=== PATIENT | female | born 1985 | race Caucasian/White ===

== ENCOUNTER 2022-05-31 15:46 | Emergency (ER) | payer OTHER, SELFPAY ==
--- NOTE | ~2022-05-31 | XR_ITS ---
XR knee LT min 4V DATE: 05/31/2022 16:29 INDICATION: Lateral left knee pain. [place] a pop in the knee jumping on a trampoline. TECHNIQUE: AP, bilateral oblique and crosstable lateral views COMPARISON: None FINDINGS: No fracture or dislocation or joint effusion. Joint spaces are preserved. No periosteal italo ction or bone destruction. No radiopaque intra-articular loose body or chondrocalcinosis. IMPRESSION: Negative Reviewed, dictated and finalized at location A. [employer] OPERATOR IMPRESSION: Negative
[2022-05-31 15:50] VITALS: BP 145/92; PULSE 84; RESP 14; TEMP 37.3; O2SAT 100
--- NOTE | 2022-05-31 17:42 | ED.LOWEXIN ---
HPI - Extremity Injury (Lower) General Chief Complaint: Extremity Injury, Lower Stated Complaint: knee injury Time Seen by Provider: 05/31/22 16:34 History of Present Illness HPI Narrative: Female presents emergency room for evaluation of left knee pain. Patient states that she was at [place] trampoline park, when she landed twisting her knee. Patient states that she was unable to ambulate following the injury. Reports hearing a pop noise at the time of the injury. Has not taken any medications to alleviate her symptoms. States the pain radiates into the posterior aspect of her knee. Pain is worse when attempting to ambulate. Related Data Allergies Allergy/AdvReac Type Severity Reaction Status Date / Time No Known Allergies Allergy Verified 05/31/22 15:47 Review of Systems Review of Systems: CONSTITUTIONAL: Denies fever, chills, or sweats. EYES: Denies visual changes, redness, or discharge. ENT: Denies rhinorrhea, congestion, sore throat, or otalgia. CARDIOVASCULAR: Denies chest pain, palpitations, or edema. RESPIRATORY: Denies cough or dyspnea. GASTROINTESTINAL: Denies abdominal pain, nausea, vomiting, or diarrhea. GENITOURINARY: Denies dysuria or hematuria. SKIN: Denies rash or itching. MUSCULOSKELETAL: Reports left knee pain NEUROLOGIC: Denies headache, numbness, dizziness, or weakness. PSYCHIATRIC: Denies anxiety or depression. Exam Narrative: GENERAL: Well-appearing, well-nourished, no physical limitations, and in no acute distress. HEAD: Normocephalic, atraumatic. EYES: Conjunctivae normal, PERRLA and EOMI. CHEST: Clear to auscultation. No respiratory distress. No wheezes rales or rhonchi. HEART: Regular rate and rhythm. No murmur heard. Normal peripheral pulses. EXTREMITIES: Left knee: No bony tenderness. No soft tissue swelling noted no ecchymosis noted. No patellar tracking. No pain with extension or flexion. No joint laxity. Negative anterior drawer test. Negative Jas's test. Neurovascular is intact distally. Strong distal pulses. SKIN: Warm, dry, no rash. No noted wounds NEURO: No focal deficits. Alert and oriented x3. MAEW. CN's II-XI intact bilaterally, normal gait PSYCH: Cooperative. Normal mood and affect. Course Vital Signs Vital signs: Vital Signs Temperature 37.3 C 05/31/22 15:50 Pulse Rate 84 05/31/22 15:50 Respiratory Rate 14 05/31/22 15:50 Blood Pressure 145/92 H 05/31/22 15:50 Pulse Oximetry 100 05/31/22 15:50 Oxygen Delivery Room Air 05/31/22 15:50 Temperature 37.3 C 05/31/22 15:50 Pulse Rate 84 05/31/22 15:50 Respiratory Rate 14 05/31/22 15:50 Blood Pressure 145/92 H 05/31/22 15:50 Pulse Oximetry 100 05/31/22 15:50 Oxygen Delivery Room Air 05/31/22 15:50 Discharge Plan Discharge Clinical Impression: Acute internal derangement of knee Patient Disposition: Home, Self-Care Condition: Stable Instructions: Antibiotic Form, Knee Pain (ED) Prescriptions: New naproxen 500 mg tablet,delayed release (DR/EC) 500 mg PO BID Qty: 20 0RF Follow-up/Referrals: PHYSICIAN NOT ON STAFF,NONSTAFF [Primary Care Provider] - Napoleon Adames MD [Physician] - Stand Alone Forms: Work/School Release IP Time of Disposition: 17:45
[2022-05-31 18:11] VITALS: PULSE 67; RESP 16; O2SAT 99
== END 2022-05-31 18:12 | disposition home or self-care (01) ==
PROVIDERS: Emergency Provider Nurse Practitioner Family
DX: M23.92 Unspecified internal derangement of left knee (principal); S89.92XA Unspecified injury of left lower leg, initial encounter; X50.9XXA Other and unspecified overexertion or strenuous movements or postures, initial encounter; Y93.44 Activity, trampolining
CPT/HCPCS: 73564; 99283

== ENCOUNTER 2022-10-29 17:38 | Emergency (ER) | payer OTHER, SELFPAY ==
--- NOTE | 2022-10-29 17:42 | ED.URI ---
HPI - URI/Sore Throat General Chief Complaint: Upper Respiratory Infection Stated Complaint: poss strep Time Seen by Provider: 10/29/22 17:42 Source: patient and RN notes reviewed History of Present Illness HPI Narrative: Patient is a 37-year-old female who presents to urgent care with complaints of a sore throat that started yesterday. Patient has been taking ibuprofen as needed. Denies any fever, nausea or vomiting. States her daughter was diagnosed with strep 3 days ago however she has only been around her once. No other acute complaints. No acute distress noted. Patient aware of the plan of care. Some parts of this dictation were generated by voice recognition software and may contain typographical and/or grammatical inaccuracies. Related Data Allergies Allergy/AdvReac Type Severity Reaction Status Date / Time No Known Allergies Allergy Verified 07/15/22 12:53 Review of Systems Review of Systems: CONSTITUTIONAL: Denies fever, chills, or sweats. EYES: Denies visual changes, redness, or discharge. ENT: Denies rhinorrhea, congestion, otalgia. Reports of sore throat CARDIOVASCULAR: Denies chest pain, palpitations, or edema. RESPIRATORY: Denies cough or dyspnea. GASTROINTESTINAL: Denies abdominal pain, nausea, vomiting, or diarrhea. GENITOURINARY: Denies dysuria or hematuria. SKIN: Denies rash or itching. MUSCULOSKELETAL: Denies back pain, joint pain, or myalgia. NEUROLOGIC: Denies headache, numbness, or weakness. All other systems reviewed are negative, except as documented in HPI. [facility] Surgical History Surgical History History of hemangioma excision History of umbilical hernia repair Family History Family History Mother Depression Grandparent Heart disease Social History Social History Smoking status: Current every day smoker Tobacco type: cigarettes Alcohol intake: current Substance use type: does not use Living arrangements: alone Comments At the time of my signature, I reviewed and agree with the nursing past medical, surgical, social, and family history. There is no relevant family history pertinent to the patient complaint. Exam Narrative: GENERAL: This is a well-nourished, well-developed patient, in no apparent distress. HEAD: normocephalic, atraumatic. EYES: PERRL. Sclera clear/white. Vision is grossly intact. EARS: External ears normal, auditory canals clear and without drainage, TMs normal without perforation. Hearing grossly intact. NOSE: External nose normal with no obvious nasal discharge, nares without redness, no rhinorrhea. THROAT: Mucous membranes moist, posterior pharynx clear. Mild postnasal drainage NECK: Neck supple CARDIOVASCULAR: Regular rate and rhythm without murmurs, gallops, or rubs. RESPIRATORY: Clear to auscultation. Breath sounds equal bilaterally. No wheezes, rales, or rhonchi. SKIN: warm, intact with no suspicious lesions or rash, good texture and turgor. NEURO: awake, alert, and oriented to person, place and time. There were no obvious focal neurologic abnormalities. EXTREMITIES: No clubbing, cyanosis, or edema. Course Course Level of Care: Express Care Visit Vital Signs Vital signs: Vital Signs Temperature 98.5 F 10/29/22 17:44 Pulse Rate 62 10/29/22 17:44 Respiratory Rate 20 10/29/22 17:44 Blood Pressure 136/88 10/29/22 17:44 Pulse Oximetry 100 10/29/22 17:44 Oxygen Delivery Room Air 10/29/22 17:44 Temperature 98.5 F 10/29/22 17:44 Pulse Rate 62 10/29/22 17:44 Respiratory Rate 20 10/29/22 17:44 Blood Pressure 136/88 10/29/22 17:44 Pulse Oximetry 100 10/29/22 17:44 Oxygen Delivery Room Air 10/29/22 17:44 Reviewed MDM - URI/Sore Throat MDM Narrative Medical decision making narrative: Reviewed lab results with the patient. She is a
[2022-10-29 17:44] VITALS: BP 136/88; PULSE 62; RESP 20; TEMP 36.9; O2SAT 100
== END 2022-10-29 18:14 | disposition home or self-care (01) ==
PROVIDERS: Emergency Provider Nurse Practitioner Family
DX: J02.9 Acute pharyngitis, unspecified (principal); F17.210 Nicotine dependence, cigarettes, uncomplicated
CPT/HCPCS: 87081; 87880; 99213; G0463

== ENCOUNTER 2024-09-19 10:29 | Emergency (ER) | payer OTHER, SELFPAY ==
[2024-09-19 10:42] VITALS: BP 118/80; PULSE 74; RESP 16; TEMP 37.1; O2SAT 100
--- NOTE | 2024-09-19 11:37 | ED.URI ---
HPI - URI/Sore Throat General Chief Complaint: Upper Respiratory Infection Stated Complaint: chest congestion Time Seen by Provider: 09/19/24 11:20 Source: patient, RN notes reviewed and old records reviewed Mode of arrival: ambulatory Limitations: no limitations History of Present Illness HPI Narrative: 39 year old female who presents to [facility] care with complaints of cough with congestion with some expectoration of brownish phlegm with some sore throat and and ear pain for 6 days. Patient reports no known fevers no chills or sweats or any body aches. Patient reports that she has taken DayQuil,NyQuil Mucinex, Tylenol and Ibuprofen and also some Sudafed for her symptoms. MD elicited complaint: cough, sore throat, rhinorrhea, nasal congestion and other (ear pain) Onset (ago): day(s) (6) Severity: moderate Description of mucous: other (brownish) Able to tolerate fluids by mouth: Yes Treatments prior to arrival: acetaminophen, ibuprofen and other (DayQuil,NyQuil and Mucinex, sudafed) Related Data Allergies Allergy/AdvReac Type Severity Reaction Status Date / Time No Known Allergies Allergy Verified 09/19/24 11:20 Review of Systems Review of Systems: CONSTITUTIONAL: Reports malaise,no chills, sweats, or fever. EYES: Denies visual changes, redness, or discharge. ENT: Reports rhinorrhea, congestion, sinus pain, otalgia and sore throat. CARDIOVASCULAR: Denies chest pain, palpitations, or edema. RESPIRATORY: Reports cough.? Denies dyspnea.reports some upper chest burning GASTROINTESTINAL: Denies abdominal pain, nausea, vomiting, diarrhea SKIN: Denies rash or itching. MUSCULOSKELETAL: Denies myalgia. NEUROLOGIC:occasional headache. All systems reviewed & are unremarkable except as noted in HPI and below PMFSH Past Medical History Medical History Insomnia Anxiety Surgical History Surgical History History of hemangioma excision History of umbilical hernia repair Family History Family History Mother Depression Grandparent Heart disease Social History Social History (Updated 09/20/24 @ 12:41 by Morena Obrien NP) Smoking status: Current every day smoker Tobacco type: e-cigarettes/vaping Additional smoking assessment comments: former cigarette use Alcohol intake: current Substance use type: does not use Living arrangements: alone Gender identity (if verbalized by the patient): Female Comments At time of signature, agree with nursing past medical, surgical, social and family history. There is no relevant family history pertinent to the presenting complaint Exam Narrative: GENERAL: Well-appearing, well-nourished, and in no acute distress. HEAD: Normocephalic EYES: PERRLA, conjunctivae clear ENT: Nares clear, turbinates edematous and erythematous, clear discharge. Mucous membranes moist.Left TM red, Right TM pearly dumont with dull light reflex; no tragal tenderness. Oropharynx erythematous without lesions. Tonsils not enlarged and without exudate, no drooling, some hoarseness, no trismus, uvula midline. NECK: Supple. No lymphadenopathy CHEST: Clear to auscultation, breath sounds equal. No wheezing, rhonchi, rales, or stridor. No respiratory distress, speaks in full sentences.cough,SAO2 100% on room air HEART: Regular rate and rhythm. No murmur heard. SKIN: Warm, dry, no rash. NEURO: Alert and oriented x3. , PSYCH: Normal mood and affect Course Course Emergency Course: Patient is aware of diagnosis, understands and agrees to treatment plan.? Anticipatory guidance given.? Patient agrees to follow-up as directed and is aware of reasons to seek care at the emergency department. Portions of this record may have been created with voice recognition software Level of Care: Express Care Visit Vital Signs Vital signs: Vital Signs Temperature 37.1 C 09/19/24 10:42 Pulse Rate 74 09/19/24 10:42 Respiratory Rate 16 09/19/24 10:42 Blood Pressure 118/80 09/19/24 10:42 Pulse Oximetry 100 09/19/24 10:42 Oxygen Delivery Room Air 09/19/24 10:42 Temperature 37.1 C 09/19/24 10:42 Pulse Rate 74 09/19/24 10:42 Respiratory Rate 16 09/19/24 10:42 Blood Pressure 118/80 09/19/24 10:42 Pulse Oximetry 100 09/19/24 10:42 Oxygen Delivery Room Air 09/19/24 10:42 Reviewed MDM - URI/Sore Throat MDM Narrative Medical decision making narrative: Differential diagnosis considered: Frausto virus, strep pharyngitis, allergic rhinitis, upper respiratory tract infection, sinusitis, rhinosinusitis, nasopharyngitis. viral pharyngitis, otitis media, otitis externa, pneumonia, bronchitis, viral cough syndrome, viral syndrome, and influenza.? Exam findings show no acute concerns or changes; patient is non-toxic appearing and is in no distress.? Patient is appropriate for outpatient treatment and follow-up. Differential Diagnosis Differential diagnosis: Likely upper respiratory infection, otitis media, viral infection and other (cough) Medical Records Attestation: I reviewed the patient's medical records. Lab Data Attestation: I reviewed the patient's lab results. Critical Care Time Critical Care Time Critical Care Time: No Discharge Plan Discharge Clinical Impression: Left acute otitis media Patient Disposition: Home, Self-Care Condition: Stable Instructions: Antibiotic Form, Ear Infection (ED) Additional Instructions: Increase fluids especially juices and water [id number] cough and cold medicine of your choice for your symptoms Zyrtec Claritin or Maite daily Tylenol or ibuprofen for any fever pain heat to the face 20-30 minutes 4-6 times a day for pain Salt water gargles, throat lozenges or throat sprays as desired Antibiotic as directed--finished the medication If your symptoms persist, change or worsen significantly before you can contact your personal physician then please, without delay, go to the emergency department for further evaluation. Follow-up with PCP in 7-10 days or sooner if needed Patient Language: Czech Prescriptions: New amoxicillin-pot clavulanate 875-125 mg tablet 1 tablet PO Q12H Qty: 20 0RF Rx Instructions: take with food recommend taking probiotic or eating Activa yogurt Follow-up/Referrals: Omar,Gretchen Molina DO [Primary Care Provider] - Time of Disposition: 11:41 Quality Piper Coma Scale Eyes: Open Verbal: Oriented and Alert Motor: Follows Commands Piper Coma Total Score: 15
== END 2024-09-19 11:45 | disposition home or self-care (01) ==
PROVIDERS: Emergency Provider Registered Nurse; PCP Family Medicine
DX: H66.92 Otitis media, unspecified, left ear (principal); F17.290 Nicotine dependence, other tobacco product, uncomplicated
CPT/HCPCS: 99213; G0463